=== PATIENT | female | born 1940 | race Caucasian/White ===

== ENCOUNTER 2023-12-23 07:41 | Day surgery (SDC) | payer MEDICARE, OTHER, SELFPAY ==
[2023-12-23 08:10] VITALS: BMI 37.4
[2023-12-23 08:12] VITALS: BP 118/73
[2023-12-23] MEDS: LOW STRENGTH ASPIRIN 81 MG PO ×4 (08:24)
[2023-12-23 08:28] LABS: Glucose - Point of Care 88 mg/dl (70-99)
--- NOTE | 2023-12-23 08:34 | PTCARENOTE ---
Pt arrived very late . she stopped her eliquis tues but did not start her aspirin as instructed by the office. 4 asa 81mg was given at 824 per MD to chew. Her procedure was delayed 30min per Dr castellanos.
[2023-12-23 09:55] LABS: ACT-LR - POC 303 Seconds (116-155)
[2023-12-23 10:31] VITALS: BP 128/49
[2023-12-23 10:36] VITALS: BP 128/50
[2023-12-23] MEDS: NSS 1000 IV (10:43)
[2023-12-23 10:53] VITALS: BP 128/49
--- NOTE | 2023-12-23 11:54 | ITS.CL.CATH ---
Seismograph Observer - Catheterization
Cardiac Catheterization
Procedure Report:
CARDIAC CATHETERIZATION REPORT
Date of Procedure: 12/23/2023
Referring: Rodolfo George MD
Indication: Chest pain with abnormal stress test
HEMODYNAMIC DATA
AO: 128/64
LV: 128/14
LEFT VENTRICULOGRAPHY: Normal left ventricular wall motion with EF 68%
CORONARY ANGIOGRAPHY
Dominance: Right
Left Main: Normal
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 This is an incidental finding. The medium sized first diagonal branch has mild luminal disease. The
slightly larger second diagonal branch has 20-30% mid stenosis
Circumflex: The circumflex gives rise to a large OM1 which has 30-40% mid stenosis. The circumflex continues in the AV groove to supply a low-lying small OM 2 and then terminates with a very large left posterolateral branch. There is 80-90%
circumflex stenosis immediately distal to the takeoff of OM 2.
RCA: The RCA is dominant with 30% proximal and 30% mid stenoses. The large PDA has mild luminal disease. RPL 1 is small. The medium to large RPL 2 tapers distally which may be a congenital variant. The RCA terminates with a small RPL 3
Angioplasty: At the conclusion the diagnostic study, we proceeded with PCI of the distal circumflex lesion. Heparin was used for anticoagulation. Plavix 600 mg was administered at the procedure conclusion. A 6 Tong[place] EBU 3.5 guide catheter was
used. A BMW wire was advanced into the large distal left posterolateral branch. Angioplasty of the 80-90% distal circumflex lesion was accomplished with a 3.0 x 12 NC trek balloon to 10 jovani and this was followed by placement of a 4.0 x 15 Xience
JSAON deployed at 14 jovani then postdilated with a 4.0 NC trek to 17 jovani. The final angiographic result was outstanding. There were no procedural complications.
Closure Device: None-the procedure was performed via the right radial artery. The Anthony's test was normal prior to the procedure.
Radiation (mGy): 519
DAP (cm2.Gy): 33.2
Fluoroscopy time: 6.9 minutes
CONCLUSIONS
1: Normal left ventricular function with EF 68%
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
3. Successful stenting of distal circumflex stenosis using 4.0 x 15 Xience JASON with outstanding result
4. Recommend triple therapy (aspirin, Plavix, Eliquis) for 1 week then Plavix and Eliquis alone. Her creatinine is 1.7 which makes the proper dose of Eliquis 2.5 mg twice daily. BMP will be obtained in 1 week and if creatinine is less than 1.5,
Dr. George will switch her back to 5 mg twice daily
Copy to: Rodolfo George MD, Miguel Joshua MD
Tejinder Linares MD, [facility], [facility]
[2023-12-23 12:05] LABS: Glucose - Point of Care 90 mg/dl (70-99)
--- NOTE | 2023-12-23 13:31 | PTCARENOTE ---
s/p PCI . bllod sugar checked prior to lumch was 90. pt ate a light lunch. Son at bedside an reviewed all discharge instructions with interruptor
--- NOTE | 2023-12-23 14:10 | PTCARENOTE ---
All discharge instructions were reviewed with pt and son and Interrupter for a 45 min period. Emphasized the importance of taking her ASA,PLAVIX AND ELIQUIS 2.5 MG DOSE for 1 week then Stopping the ASA. This was reviewed several times with good
understanding.
--- NOTE | 2023-12-23 14:22 | W.PN.UPDATE ---
Update Note
Progress Note Update
83 yo WF s/p PCI LCx x1 JASON (Same day). She denies cp, sob, hali diet, voiding, amb w/o dizziness, EKG no new ST changes, R rad site c/d/i. She will be on triple therapy ASA/Plavix and Eliquis 2.5mg for 1 week then stop ASA. Her Cr was 1.7 on 12/11,
we will decrease her eliquis and repeat labs in 1 week. She will increase rosuvastatin to 20mg daily. She will stop isosorbide. Cardiac rehab c/s. She will f/u Dr. George in 2-4 weeks. She is for d/c home after 3pm. The instructions were given to her
and son via client experience administrator and all questions answered.
CONCLUSIONS
1: Normal left ventricular function with EF 68%
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
3. Successful stenting of distal circumflex stenosis using 4.0 x 15 Xience JASON with outstanding result
4. Recommend triple therapy (aspirin, Plavix, Eliquis) for 1 week then Plavix and Eliquis alone. Her creatinine is 1.7 which makes the proper dose of Eliquis 2.5 mg twice daily. BMP will be obtained in 1 week and if creatinine is less than 1.5,
Dr. George will switch her back to 5 mg twice daily
Copy to: Rodolfo George MD, Miguel Joshua MD
--- NOTE | 2023-12-23 15:08 | PTCARENOTE ---
Radial band was ready to be removed . once band was removed pt began bleeding , pressure held for 10 min but still bleeding , radial band replaced back on with 6ml of air. since then 4 ml of air have been removed and no bleeding. There is some
bruising now around her wrist. GE Boateng and Dr Linares aware
--- NOTE | 2023-12-23 16:04 | PTCARENOTE ---
Pt was discharge after radial band was removed of all 6ml of air . Pt is bruised but no further bleeding.
== END 2023-12-23 16:05 | disposition home or self-care (01) ==
LOC: CATH 07:41
PROVIDERS: ATTENDING PHYSICIAN Internal Medicine Cardiovascular Disease; FAMILY PHYSICIAN Internal Medicine; OTHER PHYSICIAN Internal Medicine Cardiovascular Disease
DX: I25.10 Atherosclerotic heart disease of native coronary artery without angina pectoris (principal); R94.39 Abnormal result of other cardiovascular function study; R07.9 Chest pain, unspecified; Z79.82 Long term (current) use of aspirin; Z79.02 Long term (current) use of antithrombotics/antiplatelets; Z79.01 Long term (current) use of anticoagulants
CPT/HCPCS: 82962; 85347; 93005; 93458; C1725; C1769; C1874; C1887; C1894; C9600; Q9967